=== PATIENT | male | born 1995 | race Caucasian/White ===

== ENCOUNTER 2019-07-19 11:13 | Emergency (ER) | payer SELFPAY ==
--- NOTE | 2019-07-19 12:58 | ER Document Report ---
ED Medical Screen (RME) - General Chief Complaint: Bloody Stools Stated Complaint: BLOOD IN STOOL Time Seen by Provider: 07/19/19 12:52 Notes: Patient presents complaining of blood in the stool today with lower abdominal tenderness. Patient denies any other abnormal bleeding or bruising. Patient also complains of dental pain to right upper jaw. Patient denies any fever. No significant medical history. I have greeted and performed a rapid initial assessment of this patient. A comprehensive ED assessment and evaluation of the patient, analysis of test results and completion of the medical decision making process will be conducted by additional ED providers. TRAVEL OUTSIDE OF THE [place] IN LAST 30 DAYS: No - Related Data Allergies/Adverse Reactions: No Known Allergies Allergy (Verified 07/19/19 12:46) Past Medical History - Social History Chew tobacco use (# tins/day): No Frequency of alcohol use: None Drug Abuse: None Physical Exam - Vital signs Vitals: Temp Pulse Resp BP Pulse Ox 97.5 F 68 16 125/80 100 07/19/19 12:55 07/19/19 12:55 07/19/19 12:55 07/19/19 12:55 07/19/19 12:55 - General General appearance: Appears well, Alert Notes: Right upper jaw dental decay and tenderness, lower pelvic tenderness Course - Vital Signs Vital signs: Temp Pulse Resp BP Pulse Ox 97.5 F 68 16 125/80 100 07/19/19 12:55 07/19/19 12:55 07/19/19 12:55 07/19/19 12:55 07/19/19 12:55
[2019-07-19 13:33] LABS: ABSOLUTE EOSINOPHILS # (AUTO) 0.1 10^3/uL (0.0-0.6); ABSOLUTE LYMPHOCYTES (AUTO) 1.9 10^3/uL (0.5-4.7); ABSOLUTE MONOCYTES (AUTO) 0.4 10^3/uL (0.1-1.4); ABSOLUTE NEUT (AUTO) 2.4 10^3/uL (1.7-8.2); BASOPHILS % (AUTO) 0.7 % (0-2); EOSINOPHILS % (AUTO) 1.8 % (0-6); HEMATOCRIT 41.7 % (37.9-51.0); HEMOGLOBIN 13.8 g/dL (13.5-17.0); LYMPHOCYTES % (AUTO) 39.2 % (13-45); MEAN CORPUSCULAR HEMOGLOBIN 26.6 pg (27.0-33.4); MEAN CORPUSCULAR HGB CONC 33.1 g/dL (32.0-36.0); MEAN CORPUSCULAR VOLUME 80 fl (80-97); MONOCYTES % (AUTO) 8.9 % (3-13); PLATELET COUNT 249 10^3/uL (150-450); RED BLOOD COUNT 5.19 10^6/uL (4.35-5.55); RED CELL DISTRIBUTION WIDTH 15.4 % (11.5-14.0); SEGMENTED NEUTROPHILS % (AUTO) 49.4 % (42-78); TOTAL CELLS COUNTED % (AUTO) 100 %; WHITE BLOOD COUNT 4.9 10^3/uL (4.0-10.5)
[2019-07-19 13:44] LABS: APPEARANCE,URINE CLEAR; BILIRUBIN,URINE NEGATIVE (NEGATIVE); COLOR,URINE COLORLESS; GLUCOSE, URINE NEGATIVE (NEGATIVE); KETONES,URINE NEGATIVE (NEGATIVE); LEUKOCYTE ESTERASE,URINE NEGATIVE (NEGATIVE); NITRITE,URINE NEGATIVE (NEGATIVE); PROTEIN,URINE NEGATIVE (NEGATIVE); URINE SPECIFIC GRAVITY 1.001; UROBILINOGEN,URINE NEGATIVE mg/dL (<2.0)
[2019-07-19 13:59] LABS: ALBUMIN 4.1 g/dL (3.5-5.0); ALKALINE PHOSPHATASE 60 U/L (38-126); ANION GAP 6 (5-19); ASPARTATE AMINO TRANSFERASE 27 U/L (17-59); BILIRUBIN,TOTAL 1.7 mg/dL (0.2-1.3); BLOOD UREA NITROGEN 9 mg/dL (7-20); CALCIUM 9.6 mg/dL (8.4-10.2); CARBON DIOXIDE 30 mmol/L (22-30); CHLORIDE 102 mmol/L (98-107); GLUCOSE 100 mg/dL (75-110); POTASSIUM 4.6 mmol/L (3.6-5.0)
[2019-07-19] MEDS ORDERED: HYDROCODONE/ACETAMINOPHEN 5-325 MG TABLET PO ONE (15:36)
[2019-07-19] MEDS ORDERED: PENICILLIN V POTASSIUM 500 MG TABLET PO ONE (15:36)
--- NOTE | 2019-07-19 15:40 | ER Document Report ---
ED General - General Chief Complaint: Bloody Stools Stated Complaint: BLOOD IN STOOL Time Seen by Provider: 07/19/19 12:52 Primary Care Provider: [facility] [Provider Group] - Follow up as needed [facility] [Provider Group] - Follow up as needed GEETHA CASTRO MD [ACTIVE STAFF] - Follow up as needed MICHAEL JIMENEZ MD [ACTIVE STAFF] - Follow up as needed Mode of Arrival: Ambulatory Information source: Patient Notes: Patient presents complaining of blood in the stool today. Patient does report lower abdominal tenderness as well. Patient additionally has been complaining of dental pain. Patient denies any fever. Patient denies any other abnormal bleeding or bruising. TRAVEL OUTSIDE OF THE [place] IN LAST 30 DAYS: No - HPI Onset: This afternoon Onset/Duration: Sudden Quality of pain: Achy Pain Level: 2 Associated symptoms: Other - Blood in the stool. denies: Chest pain, Nonproductive cough, Productive cough, Fever, Headache, Nausea, Vomiting, Weakness Exacerbated by: Denies Relieved by: Denies Similar symptoms previously: No Recently seen / treated by doctor: No - Related Data Allergies/Adverse Reactions: No Known Allergies Allergy (Verified 07/19/19 12:46) Past Medical History - General Information source: Patient - Social History Smoking Status: Never Smoker Chew tobacco use (# tins/day): No Frequency of alcohol use: None Drug Abuse: None Occupation: None Lives with: Family Family History: Reviewed & Not Pertinent Patient has suicidal ideation: No Patient has homicidal ideation: No Pulmonary Medical History: Reports: Hx Pneumonia - january Past Surgical History: Reports: Hx Cardiac Surgery - Cardiac valve repair Review of Systems - Review of Systems Constitutional: No symptoms reported. denies: Fever EENT: Dental problem Cardiovascular: No symptoms reported. denies: Chest pain, Palpitations, Dizziness, Lightheaded Respiratory: No symptoms reported. denies: Cough, Short of breath Gastrointestinal: Abdominal pain, Blood streaked bowels. denies: Diarrhea, Nausea, Vomiting Genitourinary: No symptoms reported. denies: Dysuria, Flank pain Male Genitourinary: No symptoms reported Musculoskeletal: No symptoms reported. denies: Back pain Skin: No symptoms reported Hematologic/Lymphatic: No symptoms reported Neurological/Psychological: No symptoms reported Physical Exam - Vital signs Vitals: Temp Pulse Resp BP Pulse Ox 97.5 F 68 16 125/80 100 07/19/19 12:55 07/19/19 12:55 07/19/19 12:55 07/19/19 12:55 07/19/19 12:55 - General General appearance: Appears well, Alert In distress: None - HEENT Head: Normocephalic, Atraumatic Eyes: Normal Conjunctiva: Normal Ears: Normal External canal: Normal Nasal: Normal Mouth/Lips: Caries, Dental fracture Teeth diagram: 1 - Tenderness, dental decay, no gingival abscess, no trismus Pharynx: Normal Neck: Normal, Supple. No: Lymphadenopathy - Respiratory Respiratory status: No respiratory distress Chest status: Nontender Breath sounds: Normal. No: Rales, Rhonchi, Stridor, Wheezing Chest palpation: Normal - Cardiovascular Rhythm: Regular Heart sounds: S1 appreciated, S2 appreciated Murmur: No - Abdominal Inspection: Normal Distension: No distension Bowel sounds: Normal Tenderness: Nontender - Rectal Tenderness: No Stool: See lab result Hemorrhoids: External Notes: RN Efra as standby - Back Back: Normal, Nontender. No: CVA tenderness - Extremities General upper extremity: Normal inspection, Normal strength General lower extremity: Normal inspection, Normal strength - Neurological Neuro grossly intact: Yes Cognition: Normal Orientation: AAOx4 Poli Coma Scale Eye Opening: Spontaneous [place] Coma Scale Verbal: Oriented [place] Coma Scale Motor: Obeys Commands [place] Coma Scale Total: 15 - Psychological Associated symptoms: Normal affect, Normal mood - Skin Skin Temperature: Warm Skin Moisture: Dry Skin Color: Normal Course - Re-evaluation Re-evalutation: 07/19/19 15:37 Patient with small external hemorrhoid noted on rectal examination. Patient's abdomen soft, no guarding. Patient primarily complains of dental pain with incidental blood with a bowel movement today. Patient with stable vital signs and no anemia at this time. Patient encouraged to follow-up with her primary doctor for recheck. Patient advised to return immediately for any persistent bleeding, lightheadedness dizziness or any other abnormal bleeding or bruising. Patient advised that he may need to see a intermodal dispatcher for a colonoscopy if he has any persistent problems. - Vital Signs Vital signs: Temp Pulse Resp BP Pulse Ox 97.5 F 71 16 115/79 100 07/19/19 15:50 07/19/19 15:50 07/19/19 15:50 07/19/19 15:50 07/19/19 15:50 - Laboratory Result Diagrams: 07/19/19 13:20 07/19/19 13:20 Laboratory results interpreted by me: 07/19/19 07/19/19 13:20 13:20 MCH 26.6 L RDW 15.4 H Total Bilirubin 1.7 H 07/19/19 15:39 Labs- Entire Visit 07/19/19 07/19/19 07/19/19 13:20 13:20 13:20 WBC 4.9 RBC 5.19 Hgb 13.8 Hct 41.7 MCV 80 MCH 26.6 L MCHC 33.1 RDW 15.4 H Plt Count 249 Lymph % (Auto) 39.2 [place] % (Auto) 8.9 Eos % (Auto) 1.8 Baso % (Auto) 0.7 Absolute Neuts (auto) 2.4 Absolute Lymphs (auto) 1.9 Absolute Monos (auto) 0.4 Absolute Eos (auto) 0.1 Absolute Basos (auto) 0.0 Seg Neutrophils % 49.4 Sodium 138.2 Potassium 4.6 Chloride 102 Carbon Dioxide 30 Anion Gap 6 BUN 9 Creatinine 0.89 Est GFR ( Amer) > 60 Est GFR (MDRD) Non-Af > 60 Glucose 100 Calcium 9.6 Total Bilirubin 1.7 H Direct Bilirubin 0.0 Neonat Total Bilirubin Not Reportable Neonat Direct Bilirubin Not Reportable Neonat Indirect Bili Not Reportable AST 27 ALT 16 Alkaline Phosphatase 60 Total Protein 8.0 Albumin 4.1 Urine Color COLORLESS Urine Appearance CLEAR Urine pH 7.0 Ur Specific [place] 1.001 Urine Protein NEGATIVE Urine Glucose (UA) NEGATIVE Urine Ketones NEGATIVE Urine Blood NEGATIVE Urine Nitrite NEGATIVE Urine Bilirubin NEGATIVE Urine Urobilinogen NEGATIVE Ur Leukocyte Esterase NEGATIVE Urine WBC (Auto) 0 Urine Mucus (Auto) RARE Urine Ascorbic Acid NEGATIVE POC Stool Occult Blood 07/19/19 14:28 WBC RBC Hgb Hct MCV MCH MCHC RDW Plt Count Lymph % (Auto) [place] % (Auto) Eos % (Auto) Baso % (Auto) Absolute Neuts (auto) Absolute Lymphs (auto) Absolute Monos (auto) Absolute Eos (auto) Absolute Basos (auto) Seg Neutrophils % Sodium Potassium Chloride Carbon Dioxide Anion Gap BUN Creatinine Est GFR ( Amer) Est GFR (MDRD) Non-Af Glucose Calcium Total Bilirubin Direct Bilirubin Neonat Total Bilirubin Neonat Direct Bilirubin Neonat Indirect Bili AST ALT Alkaline Phosphatase Total Protein Albumin Urine Color Urine Appearance Urine pH Ur Specific [place] Urine Protein Urine Glucose (UA) Urine Ketones Urine Blood Urine Nitrite Urine Bilirubin Urine Urobilinogen Ur Leukocyte Esterase Urine WBC (Auto) Urine Mucus (Auto) Urine Ascorbic Acid POC Stool Occult Blood POSITIVE Discharge - Discharge Clinical Impression: Toothache, Blood in stool Hemorrhoid Qualifiers: Hemorrhoid type: unspecified Qualified Code(s): K64.9 - Unspecified hemorrhoids Condition: Stable Disposition: HOME, SELF-CARE Instructions: Hemorrhoids ([facility]), Penicillin V K ([facility]), Positive Test for Blood in Stool ([facility]), Toothache ([facility]) Additional Instructions: Return immediately for any new or worsening symptoms: Persistent rectal bleeding, fever, abdominal pain, abnormal bleeding or bruising, lightheadedness, dizziness or any worsening concerning symptoms Followup with your primary care provider, call tomorrow to make a followup appointment You may need to follow-up with a intermodal dispatcher if you have any persistent problems with blood in the stool. Follow-up with a dental care provider Stay well-hydrated and avoid constipation. You may use [id number] Tucks pads to wipe after bowel movements Prescriptions: Penicillin V Potassium [Penicillin Vk 500 mg Tablet] 500 mg PO BID #20 tablet Tramadol HCl [Ultram 50 mg Tablet] 50 mg PO ASDIR PRN #10 tablet PRN Reason: Referrals: [facility] [Provider Group] - Follow up as needed [facility] [Provider Group] - Follow up as needed GEETHA CASTRO MD [ACTIVE STAFF] - Follow up as needed MICHAEL JIMENEZ MD [ACTIVE STAFF] - Follow up as needed
[2019-07-19 15:51] VITALS: BP 115/79
== END 2019-07-19 15:55 | disposition home or self-care (01) ==
LOC: ER 11:13
DX: K64.9 Unspecified hemorrhoids (principal); K08.89 Other specified disorders of teeth and supporting structures; R19.5 Other fecal abnormalities; R10.30 Lower abdominal pain, unspecified
CPT/HCPCS: 36415; 80053; 81001; 85025; 99283

== ENCOUNTER 2019-07-24 11:16 | Emergency (ER) | payer SELFPAY ==
[2019-07-24] MEDS ORDERED: IBUPROFEN 800 MG TABLET PO ONE (11:27)
--- NOTE | 2019-07-24 11:30 | ER Document Report ---
ED Medical Screen (RME) - General Chief Complaint: Flu Symptoms Stated Complaint: FLU LIKE SYMPTOMS Time Seen by Provider: 07/24/19 11:22 Mode of Arrival: Wheelchair Information source: Patient, Friend Notes: 23-year-old male presents emergency department with complaints of bilateral knee pain low back pain for the past 2 days. Reports he took Aleve without relief of symptoms. Denies fever vomiting diarrhea. Patient does have a history of a pacemaker recently replaced last year. 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 Denies chest pain denies abdominal pain. He did not receive his flu vaccine. Denies trauma. Reports he was evaluated in this emergency department on Monday for blood in his stool with diagnosis of hemorrhoids. Patient's girlfriend reports he felt warm last night. Did not take any Tylenol or Aleve this morning. No fever this morning. Patient looks very uncomfortable moaning and rocking back and forth. I have greeted and performed a rapid initial assessment of this patient. A comprehensive ED assessment and evaluation of the patient, analysis of test results and completion of the medical decision making process will be conducted by additional ED providers. TRAVEL OUTSIDE OF THE [place] IN LAST 30 DAYS: No - Related Data Allergies/Adverse Reactions: No Known Allergies Allergy (Verified 07/24/19 11:22) Past Medical History Pulmonary Medical History: Reports: Hx Pneumonia - january Past Surgical History: Reports: Hx Bowel Surgery, Hx Cardiac Surgery - Cardiac valve repair Physical Exam - Vital signs Vitals: Temp Pulse Resp BP Pulse Ox 98.7 F 66 22 H 101/64 97 07/24/19 11:20 07/24/19 11:20 07/24/19 11:20 07/24/19 11:20 07/24/19 11:20 Course - Vital Signs Vital signs: Temp Pulse Resp BP Pulse Ox 98.7 F 66 22 H 101/64 97 07/24/19 11:20 07/24/19 11:20 07/24/19 11:20 07/24/19 11:20 07/24/19 11:20
--- NOTE | 2019-07-24 12:04 | ER Document Report ---
ED General - General Chief Complaint: Pain All Over Stated Complaint: FLU LIKE SYMPTOMS Time Seen by Provider: 07/24/19 11:22 Mode of Arrival: Wheelchair Notes: HPI: Patient is a 23-year-old male who presents today with the onset last evening and this morning of backaches, leg aches, feeling "warm" with a mild sore throat. He also states a mild frontal headache. No blurry vision, head trauma, vomiting, diarrhea, cough, congestion, belly pain, or dysuria. Past medical history as recorded including a pacemaker for bradycardia as well as a tricuspid valve repair/replacement in January in [place]. Patient moved h ere recently. Patient did not have an influenza shot this year. Patient did not take any Motrin, Tylenol, or other antipyretics throughout the evening with this morning prior to arrival. ROS: See HPI All other review of systems reviewed and otherwise negative Reviewed vital signs and nursing note as charted by RN. PHYSICAL EXAM: CONSTITUTIONAL: Alert and oriented and responds appropriately to questions. Patient laughing and playful in no acute distress HEAD: Normocephalic; atraumatic EYES: PERRL; Conjunctivae clear, sclerae non-icteric ENT: Normal nose; no rhinorrhea; moist mucous membranes; pharynx minimally erythematous with no peritonsillar swelling with a nonswollen midline uvula NECK: Supple without meningismus; non-tender; full range of motion of the neck; no cervical lymphadenopathy, no masses CARD: Regular rate and rhythm; no murmurs; symmetric distal pulses RESP: Normal chest excursion without splinting or tachypnea; breath sounds clear and equal bilaterally; no wheezes, no rhonchi, no rales ABD/GI: Normal bowel sounds; non-distended; soft, non-tender; no palpable organomegaly or masses BACK: The back appears normal and is non-tender to palpation EXT: Normal ROM in all joints; non-tender to palpation; no edema SKIN: No acute lesions noted NEURO: CN 2-12 intact; 5/5 bilateral upper and lower extremity strength with sensation intact to light touch PSYCH: The patient's mood and manner are appropriate. Grooming and personal hygiene are appropriate. TRAVEL OUTSIDE OF THE [place] IN LAST 30 DAYS: No - Related Data Allergies/Adverse Reactions: No Known Allergies Allergy (Verified 07/24/19 11:22) Home Medications: no home medications Past Medical History - General Information source: Patient, Friend - Social History Smoking Status: Never Smoker Chew tobacco use (# tins/day): No Frequency of alcohol use: None Drug Abuse: None Family History: Reviewed & Not Pertinent Patient has suicidal ideation: No Patient has homicidal ideation: No Pulmonary Medical History: Reports: Hx Pneumonia - january Past Surgical History: Reports: Hx Bowel Surgery, Hx Cardiac Surgery - Cardiac valve repair Physical Exam - Vital signs Vitals: Temp Pulse Resp BP Pulse Ox 98.7 F 66 22 H 101/64 97 07/24/19 11:20 07/24/19 11:20 07/24/19 11:20 07/24/19 11:20 07/24/19 11:20 Course - Re-evaluation Re-evalutation: 07/24/19 12:03 Given the above history and physical, temperature as recorded, no antipyretics prior to arrival, looking extremely well sitting up smiling in no acute distress, with an erythematous throat with signs and symptoms consistent with influenza we will order a rapid strep and influenza a/B. I have an extremely low pretest probability for bacterial meningitis. Patient is not immunocompr omise. Patient has no cough, congestion, with breath sounds bilaterally equal without rhonchi or rales. Oxygen saturation is recorded. 07/24/19 12:39 Influenza and strep as recorded. No change in exam. The sensitivity of the test that we use here for influenza is only 50%. Patient symptomatology with the back and leg aches does appear to be very influenza-like. Given the patient's prior history I will treat with Tamiflu. To be conservative, we will send blood cultures as well as perform an x-ray of the chest. If these are unremarkable and the patient continues to look excellent I will provide a 5-day course of Tamiflu. 07/24/19 14:14 X-ray as recorded. White blood cell count is recorded. Patient still has no focal neurological deficits, still soft supple neck. I will treat the patient with a course of Tamiflu with blood cultures pending. Strict return precautions have been explained. - Vital Signs Vital signs: Temp Pulse Resp BP Pulse Ox 98.7 F 66 22 H 101/64 97 07/24/19 11:20 07/24/19 11:20 07/24/19 11:20 07/24/19 11:20 07/24/19 11:20 - Laboratory Result Diagrams: 07/24/19 13:05 07/24/19 13:05 Laboratory results interpreted by me: 07/24/19 07/24/19 13:05 13:05 MCH 26.5 L RDW 15.7 H Lymph % (Auto) 7.2 L [place] % (Auto) 14.8 H Glucose 112 H Discharge - Discharge Clinical Impression: Generalized body aches Condition: Good Disposition: HOME, SELF-CARE Additional Instructions: Come back immediately with any rash, confusion, change in mental status, persis tent vomiting or diarrhea, shortness of breath, neck stiffness, or any other acute problems. Please make sure that you take the Tamiflu and follow-up with your primary care physician as discussed. Prescriptions: Oseltamivir Phosphate [Tamiflu 75 mg Capsule] 75 mg PO BID 5 Days #10 capsule
[2019-07-24 12:25] LABS: A TYPE INFLUENZA AG NEGATIVE (NEGATIVE); B INFLUENZA AG NEGATIVE (NEGATIVE)
[2019-07-24] MEDS ORDERED: OSELTAMIVIR PHOSPHATE 75 MG CAPSULE PO ONE (12:39)
--- NOTE | 2019-07-24 13:15 | RADIOLOGY REPORT (SQ) ---
EXAM DESCRIPTION: CHEST 2 VIEWS COMPLETED DATE/TIME: 07/24/2019 12:54 pm REASON FOR STUDY: 34; fever COMPARISON: None. EXAM PARAMETERS: NUMBER OF VIEWS: two views TECHNIQUE: PA and lateral views of the chest were obtained. RADIATION DOSE: NA LIMITATIONS: none FINDINGS: LUNGS AND PLEURA: No consolidation, pleural effusion or pneumothorax. MEDIASTINUM AND HILAR STRUCTURES: No mediastinal or hilar contour abnormality. HEART AND VASCULAR STRUCTURES: Dextrocardia with situs inversus. BONES: No acute findings. HARDWARE: The median sternotomy wires, cardiac valve prosthesis, and implanted cardiac device. OTHER: No other finding. IMPRESSION: Dextrocardia with situs inversus. No acute cardiopulmonary process. TECHNICAL DOCUMENTATION: JOB ID: [id number] [employer]- All Rights Reserved Reading location - IP/workstation name: [email or web address]
[2019-07-24 13:35] LABS: ABSOLUTE LYMPHOCYTES (AUTO) 0.5 10^3/uL (0.5-4.7); ABSOLUTE MONOCYTES (AUTO) 0.9 10^3/uL (0.1-1.4); ABSOLUTE NEUT (AUTO) 4.9 10^3/uL (1.7-8.2); BASOPHILS % (AUTO) 0.4 % (0-2); EOSINOPHILS % (AUTO) 0.6 % (0-6); HEMATOCRIT 42.1 % (37.9-51.0); HEMOGLOBIN 13.9 g/dL (13.5-17.0); LYMPHOCYTES % (AUTO) 7.2 % (13-45); MEAN CORPUSCULAR HEMOGLOBIN 26.5 pg (27.0-33.4); MEAN CORPUSCULAR HGB CONC 32.9 g/dL (32.0-36.0); MEAN CORPUSCULAR VOLUME 81 fl (80-97); MONOCYTES % (AUTO) 14.8 % (3-13); PLATELET COUNT 191 10^3/uL (150-450); RED BLOOD COUNT 5.23 10^6/uL (4.35-5.55); RED CELL DISTRIBUTION WIDTH 15.7 % (11.5-14.0); TOTAL CELLS COUNTED % (AUTO) 100 %; WHITE BLOOD COUNT 6.4 10^3/uL (4.0-10.5)
[2019-07-24 14:04] LABS: ANION GAP 10 (5-19); BLOOD UREA NITROGEN 10 mg/dL (7-20); CALCIUM 9.6 mg/dL (8.4-10.2); CARBON DIOXIDE 28 mmol/L (22-30); CHLORIDE 101 mmol/L (98-107); GLUCOSE 112 mg/dL (75-110); POTASSIUM 3.9 mmol/L (3.6-5.0)
[2019-07-24 16:26] VITALS: BP 102/61
== END 2019-07-24 16:26 | disposition home or self-care (01) ==
LOC: ER 11:16
DX: M79.10 Myalgia, unspecified site (principal); M54.9 Dorsalgia, unspecified; M79.604 Pain in right leg; M79.605 Pain in left leg; J02.9 Acute pharyngitis, unspecified; R51 Headache; Z95.0 Presence of cardiac pacemaker
CPT/HCPCS: 99283; 36415; 87040; 87070; 87880; 85025; 87077; 80048; 87804; 71046; J3490

== ENCOUNTER 2019-12-09 10:51 | Emergency (ER) | payer SELFPAY ==
--- NOTE | 2019-12-09 11:50 | ER Document Report ---
ED Medical Screen (RME) - General Chief Complaint: Head Injury Stated Complaint: HEAD INJURY Time Seen by Provider: 12/09/19 11:48 Mode of Arrival: Ambulatory Information source: Patient Notes: 24-year-old male presents to ED for injury to the top of his head. He does have tenderness to the top of his head he hit it on a cabinet. He states there was a small amount of bleeding but not at this time. He also had a has a history of situs inversus and dextrocardia. All of his organs are on the wrong side. He also has a pacemaker he had multiple heart surgeries pneumonia he also has blood clots in the lung. He states he took stop taking his blood thinners on his own because he was on Eliquis and he was did not like the way it was making him feel. He is alert oriented respirations regular and unlabored speaking in full sentences. He states he does not smoke drink or use any drugs. I have greeted and performed a rapid initial assessment of this patient. A comprehensive ED assessment and evaluation of the patient, analysis of test results and completion of medical decision making process will be conducted by an additional ED providers. TRAVEL OUTSIDE OF THE [place] IN LAST 30 DAYS: No - Related Data Allergies/Adverse Reactions: No Known Allergies Allergy (Verified 07/24/19 11:22) Past Medical History - Social History Frequency of alcohol use: None Drug Abuse: None Pulmonary Medical History: Reports: Hx Pneumonia - january Past Surgical History: Reports: Hx Bowel Surgery, Hx Cardiac Surgery - Cardiac valve repair Physical Exam - Vital signs Vitals: Temp Pulse Resp BP Pulse Ox 97.9 F 70 16 120/81 99 12/09/19 11:12/09/19 11:12/09/19 11:12/09/19 11:00 12/09/19 11:00 Course - Vital Signs Vital signs: Temp Pulse Resp BP Pulse Ox 97.9 F 70 16 120/81 99 12/09/19 11:41 12/09/19 11:00 12/09/19 11:00 12/09/19 11:00 12/09/19 11:00
[2019-12-09 12:27] LABS: ABSOLUTE EOSINOPHILS # (AUTO) 0.2 10^3/uL (0.0-0.6); ABSOLUTE LYMPHOCYTES (AUTO) 1.6 10^3/uL (0.5-4.7); ABSOLUTE MONOCYTES (AUTO) 0.3 10^3/uL (0.1-1.4); ABSOLUTE NEUT (AUTO) 1.9 10^3/uL (1.7-8.2); BASOPHILS % (AUTO) 0.8 % (0-2); EOSINOPHILS % (AUTO) 3.8 % (0-6); HEMATOCRIT 44.8 % (37.9-51.0); HEMOGLOBIN 14.9 g/dL (13.5-17.0); LYMPHOCYTES % (AUTO) 39.8 % (13-45); MEAN CORPUSCULAR HEMOGLOBIN 27.5 pg (27.0-33.4); MEAN CORPUSCULAR HGB CONC 33.4 g/dL (32.0-36.0); MEAN CORPUSCULAR VOLUME 82 fl (80-97); MONOCYTES % (AUTO) 8.6 % (3-13); PLATELET COUNT 195 10^3/uL (150-450); RED BLOOD COUNT 5.44 10^6/uL (4.35-5.55); RED CELL DISTRIBUTION WIDTH 14.2 % (11.5-14.0); TOTAL CELLS COUNTED % (AUTO) 100 %; WHITE BLOOD COUNT 4.1 10^3/uL (4.0-10.5)
[2019-12-09 12:37] LABS: PROTHROMBIN TIME 14.3 SEC (11.4-15.4)
[2019-12-09 12:44] LABS: ALBUMIN 4.5 g/dL (3.5-5.0); ALKALINE PHOSPHATASE 55 U/L (38-126); ANION GAP 5 (5-19); ASPARTATE AMINO TRANSFERASE 32 U/L (17-59); BILIRUBIN,DIRECT 0.1 mg/dL (0.0-0.4); BILIRUBIN,TOTAL 2.5 mg/dL (0.2-1.3); BLOOD UREA NITROGEN 10 mg/dL (7-20); CALCIUM 9.6 mg/dL (8.4-10.2); CARBON DIOXIDE 29 mmol/L (22-30); CHLORIDE 104 mmol/L (98-107); GLUCOSE 83 mg/dL (75-110); PARTIAL THROMBOPLASTIN TIME 24.7 SEC (23.5-35.8); POTASSIUM 4.4 mmol/L (3.6-5.0); TOTAL PROTEIN 8.3 g/dL (6.3-8.2)
--- NOTE | 2019-12-09 13:55 | ER Document Report ---
HPI - HPI Patient complains to provider of: scalp injury Time Seen by Provider: 12/09/19 11:48 Onset: Other Pain Level: 1 Context: 24-year-old male with cardiac history presents to the emergency department with reports that his girlfriend and him were making breakfast. She opened a cabinet and the salt Shaker fell out. He went to pick it up and when he stood up he hit his head on a cabinet. No change in LOC. Patient reports he felt dizzy at that time. Denies nausea vomiting diarrhea. Patient reports he feels much better now. No active bleeding reports his tetanus is up-to-date. Patient was supposed to go to work today at [employer]. Associated Symptoms: None Exacerbated by: Denies Relieved by: Denies Similar symptoms previously: No Recently seen / treated by doctor: No - CONSTITUTIONAL Constitutional: DENIES: Fever, Chills - NEURO Neurology: REPORTS: Headache - REPRODUCTIVE Reproductive: DENIES: : Past Medical History - General Information source: Patient - Social History Smoking Status: Never Smoker Frequency of alcohol use: None Drug Abuse: None Occupation: [employer] Lives with: Friend Family History: Reviewed & Not Pertinent Patient has suicidal ideation: No Patient has homicidal ideation: No Pulmonary Medical History: Reports: Hx Pneumonia - january Past Surgical History: Reports: Hx Bowel Surgery, Hx Cardiac Surgery - Cardiac valve repair Vertical Provider Document - CONSTITUTIONAL Agree With Documented VS: Yes Exam Limitations: No Limitations General Appearance: WD/WN, No Apparent Distress - INFECTION CONTROL TRAVEL OUTSIDE OF THE [place] IN LAST 30 DAYS: No - HEENT HEENT: Normocephalic. negative: Atraumatic - very small laceration ~2mm superficial to top of his head, Conjuctival Injection, Pharyngeal Erythema, Tympanic Membrane Bulging - NECK Neck: Normal Inspection, Supple - RESPIRATORY Respiratory: No Respiratory Distress - CARDIOVASCULAR Cardiovascular: Regular Rate - MUSCULOSKELETAL/EXTREMETIES Musculoskeletal/Extremeties: KIERA MUNGUIA - NEURO Level of Consciousness: Awake, Alert, Appropriate Motor/Sensory: No Motor Deficit - DERM Integumentary: Warm, Dry, Laceration - very small laceration ~2mm superficial to top of his head Adult Front & Back Diagram: 1 - very small laceration ~2mm superficial to top of his head Course - Re-evaluation Re-evalutation: 12/09/19 Labs unremarkable. Patient has small very superficial laceration to the top of his head no active bleeding. He was instructed on monitoring the site. Return for concerns. He verbalized understand all instructions. Laboratory 12/09/19 12/09/19 12/09/19 11:55 11:55 11:55 WBC 4.1 RBC 5.44 Hgb 14.9 Hct 44.8 MCV 82 MCH 27.5 MCHC 33.4 RDW 14.2 H Plt Count 195 Lymph % (Auto) 39.8 [place] % (Auto) 8.6 Eos % (Auto) 3.8 Baso % (Auto) 0.8 Absolute Neuts (auto) 1.9 Absolute Lymphs (auto) 1.6 Absolute Monos (auto) 0.3 Absolute Eos (auto) 0.2 Absolute Basos (auto) 0.0 Seg Neutrophils % 47.0 PT 14.3 INR 1.10 APTT 24.7 Sodium 138.1 Potassium 4.4 Chloride 104 Carbon Dioxide 29 Anion Gap 5 BUN 10 Creatinine 0.81 Est GFR ( Amer) > 60 Est GFR (MDRD) Non-Af > 60 Glucose 83 Calcium 9.6 Total Bilirubin 2.5 H Direct Bilirubin 0.1 Neonat Total Bilirubin Not Reportable Neonat Direct Bilirubin Not Reportable Neonat Indirect Bili Not Reportable AST 32 ALT 21 Alkaline Phosphatase 55 Total Protein 8.3 H Albumin 4.5 - Vital Signs Vital signs: Temp Pulse Resp BP Pulse Ox 98.0 F 76 17 122/82 99 12/09/19 12:25 12/09/19 12:25 12/09/19 12:25 12/09/19 12:25 12/09/19 12:25 - Laboratory Result Diagrams: 12/09/19 11:55 12/09/19 11:55 Laboratory results interpreted by me: 12/09/19 12/09/19 11:55 11:55 RDW 14.2 H Total Bilirubin 2.5 H Total Protein 8.3 H Discharge - Discharge Clinical Impression: Head injury Qualifiers: Encounter type: initial encounter Qualified Code(s): S09.90XA - Unspecified injury of head, initial encounter Scalp laceration Qualifiers: Encounter type: initial encounter Qualified Code(s): S01.01XA - Laceration without foreign body of scalp, initial encounter Condition: Stable Disposition: HOME, SELF-CARE Additional Instructions: *You have been treated for head injury, scalp laceration *Was treated with gentle shampoo. Monitor the site for any signs of infection such as redness swelling warmth pain Take Tylenol or Motrin as indicated for pain *Follow up with a primary care provider within 1 week for recheck *Return to the emergency department for any signs of infection, concerns, needs Forms: Return to Work
[2019-12-09 13:59] VITALS: BP 121/70
== END 2019-12-09 14:05 | disposition home or self-care (01) ==
LOC: ER 10:51
DX: S01.01XA Laceration without foreign body of scalp, initial encounter (principal); R51 Headache; W22.8XXA Striking against or struck by other objects, initial encounter; Y93.G3 Activity, cooking and baking; I26.99 Other pulmonary embolism without acute cor pulmonale; T45.516A Underdosing of anticoagulants, initial encounter; Z91.128 Patient's intentional underdosing of medication regimen for other reason; Z91.14 Patient's other noncompliance with medication regimen
CPT/HCPCS: 36415; 80053; 85025; 85610; 85730; 99283

== ENCOUNTER 2019-12-31 14:43 | Emergency (ER) | payer SELFPAY ==
--- NOTE | 2019-12-31 16:15 | ER Document Report ---
ED Medical Screen (RME) - General Chief Complaint: Abdominal Pain Stated Complaint: ABDOMINAL PAIN/ HEART PALPITATIONS Time Seen by Provider: 12/31/19 16:00 Notes: HPI: 24-year-old male with history of dextrocardia, situs inversus, bradycardia with pacemaker, PE 1 year ago presenting for mid abdominal pain. Started today. Also had some palpitations with this specifically denies pleuritic pain chest pain shortness of breath. No diarrhea. PHYSICAL EXAMINATION: Moderate tenderness through the mid periumbilical region of the abdomen on palpation I have greeted and performed a rapid initial assessment of this patient. A comprehensive ED assessment and evaluation of the patient, analysis of test results and completion of medical decision making process will be conducted by an additional ED providers. TRAVEL OUTSIDE OF THE U[place]. IN LAST 30 DAYS: No - Related Data Allergies/Adverse Reactions: No Known Allergies Allergy (Verified 07/24/19 11:22) Home Medications: Acyclovir Past Medical History - Social History Frequency of alcohol use: Social Pulmonary Medical History: Reports: Hx Pneumonia - january Past Surgical History: Reports: Hx Bowel Surgery, Hx Cardiac Surgery - Cardiac valve repair Physical Exam - Vital signs Vitals: Temp Pulse Resp BP Pulse Ox 98.8 F 69 16 111/76 98 12/31/19 14:47 12/31/19 14:47 12/31/19 14:47 12/31/19 14:47 12/31/19 14:47 Course - Vital Signs Vital signs: Temp Pulse Resp BP Pulse Ox 98.8 F 69 16 111/76 98 12/31/19 15:59 12/31/19 14:47 12/31/19 14:47 12/31/19 14:47 12/31/19 14:47
[2019-12-31 17:36] LABS: APPEARANCE,URINE SLIGHTLY-CLOUDY; BILIRUBIN,URINE NEGATIVE (NEGATIVE); COLOR,URINE AMBER; GLUCOSE, URINE NEGATIVE (NEGATIVE); KETONES,URINE TRACE mg/dL (NEGATIVE); LEUKOCYTE ESTERASE,URINE NEGATIVE (NEGATIVE); NITRITE,URINE NEGATIVE (NEGATIVE); PROTEIN,URINE 30 mg/dL (NEGATIVE); URINE SPECIFIC GRAVITY 1.028; UROBILINOGEN,URINE NEGATIVE mg/dL (<2.0)
[2019-12-31 19:58] LABS: ABSOLUTE BASOPHILS # (AUTO) 0.1 10^3/uL (0.0-0.2); ABSOLUTE EOSINOPHILS # (AUTO) 0.2 10^3/uL (0.0-0.6); ABSOLUTE LYMPHOCYTES (AUTO) 2.5 10^3/uL (0.5-4.7); ABSOLUTE MONOCYTES (AUTO) 0.5 10^3/uL (0.1-1.4); ABSOLUTE NEUT (AUTO) 3.2 10^3/uL (1.7-8.2); BASOPHILS % (AUTO) 1.3 % (0-2); EOSINOPHILS % (AUTO) 2.7 % (0-6); HEMATOCRIT 39.7 % (37.9-51.0); HEMOGLOBIN 13.1 g/dL (13.5-17.0); LYMPHOCYTES % (AUTO) 38.6 % (13-45); MEAN CORPUSCULAR HEMOGLOBIN 27.1 pg (27.0-33.4); MEAN CORPUSCULAR HGB CONC 32.9 g/dL (32.0-36.0); MEAN CORPUSCULAR VOLUME 82 fl (80-97); MONOCYTES % (AUTO) 8.4 % (3-13); PLATELET COUNT 209 10^3/uL (150-450); RED BLOOD COUNT 4.83 10^6/uL (4.35-5.55); RED CELL DISTRIBUTION WIDTH 13.8 % (11.5-14.0); TOTAL CELLS COUNTED % (AUTO) 100 %; WHITE BLOOD COUNT 6.5 10^3/uL (4.0-10.5)
--- NOTE | 2019-12-31 20:01 | EKG REPORT ---
SEVERITY:- ABNORMAL ECG - ATRIAL-PACED RHYTHM BORDERLINE RIGHT AXIS DEVIATION ABNORMAL T, CONSIDER ISCHEMIA, LATERAL LEADS : Confirmed by: Juan Rosa MD 31-Dec-2019 20:00:06
[2019-12-31 20:11] LABS: ALBUMIN 4.3 g/dL (3.5-5.0); ALKALINE PHOSPHATASE 54 U/L (38-126); ANION GAP 6 (5-19); ASPARTATE AMINO TRANSFERASE 25 U/L (17-59); BILIRUBIN,DIRECT 0.1 mg/dL (0.0-0.4); BILIRUBIN,TOTAL 1.7 mg/dL (0.2-1.3); BLOOD UREA NITROGEN 10 mg/dL (7-20); CALCIUM 9.5 mg/dL (8.4-10.2); CARBON DIOXIDE 29 mmol/L (22-30); CHLORIDE 102 mmol/L (98-107); GLUCOSE 95 mg/dL (75-110); POTASSIUM 4.1 mmol/L (3.6-5.0)
--- NOTE | 2019-12-31 20:21 | ER Document Report ---
ED General - General Chief Complaint: Abdominal Pain Stated Complaint: ABDOMINAL PAIN/ HEART PALPITATIONS Time Seen by Provider: 12/31/19 16:00 Notes: 24-year-old male presents emergency department complaining of mild diffuse abdominal pain that started this afternoon around 2 PM. He describes it as a diffuse, aching constant pain that does not change with anything to drink. He has not tried eating since the pain started because he does not have an appetite. Denies nausea, vomiting or diarrhea. States his biggest concern is that his cardiac pacemaker is actually in his abdomen and after the abdominal pain started he started having palpitations. States that the pacer was moved there approximately 1 year ago when he developed an infection around the pacemaker that had been in his chest. Patient has a history of dextrocardia with situs inversus. TRAVEL OUTSIDE OF THE [place] IN LAST 30 DAYS: No - Related Data Allergies/Adverse Reactions: No Known Allergies Allergy (Verified 07/24/19 11:22) Home Medications: Acyclovir Past Medical History - General Information source: Patient - Social History Smoking Status: Current Some Day Smoker - Occasionally vapes, used to smoke. Frequency of alcohol use: Social Drug Abuse: None Family History: Reviewed & Not Pertinent Patient has homicidal ideation: No Pulmonary Medical History: Reports: Hx Pneumonia - january Past Surgical History: Reports: Hx Bowel Surgery, Hx Cardiac Surgery - Cardiac valve repair Review of Systems - Review of Systems Constitutional: No symptoms reported EENT: No symptoms reported Cardiovascular: See HPI, Palpitations. denies: Chest pain, Dizziness Respiratory: No symptoms reported Gastrointestinal: See HPI, Abdominal pain. denies: Diarrhea, Nausea, Vomiting -: Yes All other systems reviewed and negative Physical Exam - Vital signs Vitals: Temp Pulse Resp BP Pulse Ox 98.8 F 69 16 111/76 98 12/31/19 14:47 12/31/19 14:47 12/31/19 14:47 12/31/19 14:47 12/31/19 14:47 Interpretation: Normal - Notes Notes: GENERAL: Alert, interacts well. No acute distress. HEAD: Normocephalic, atraumatic EYES: Pupils equal, round and reactive to light, extraocular movements intact. ENT: Oral mucosa moist, tongue midline. NECK: Full range of motion, supple, trachea midline. LUNGS: Clear to auscultation bilaterally, no wheezes, rales or rhonchi, no respiratory distress. HEART: Regular rate and rhythm, no murmurs, gallops, rubs. ABDOMEN: Soft, mildly tender to palpation over mid and right upper abdomen, mostly in the area of the new pacemaker site. Nondistended, bowel sounds present in all 4 quadrants. EXTREMITIES: Moves all 4 extremities spontaneously, no edema. No cyanosis. NEUROLOGICAL: Alert and oriented x3, normal speech. PSYCH: Normal mood, normal affect. SKIN: Warm, Dry, normal turgor, no rashes or lesions noted. Course - Re-evaluation Re-evalutation: 12/31/19 20:19 CBC shows mild anemia with hemoglobin 13.1, CMP shows slightly elevated bilirubin otherwise unremarkable, lipase normal, urinalysis unremarkable. CT scan of the abdomen pelvis is pending. Patient will be placed on a monitor, pacemaker will be interrogated. 12/31/19 22:39 Abdomen/Pelvis CT 12/31/19 00:00 IMPRESSION: No acute process in the abdomen or pelvis. Situs inversus is identified with polysplenia. Chest X-Ray 12/31/19 20:13 IMPRESSION: No acute finding. Situs inversus. copyright 2010 [employer]- All Rights Reserved Inflammatory markers are normal, no evidence of infection of new pacemaker site, pacemaker was interrogated and does not show any evidence of malfunction. Patient did have one episode of atrial fibrillation early in the morning on the that lasted for 3 minutes, patient states he thinks he may be would have woken up for that but he is not certain. States that is not what he is feeling today. Given the fact that the patient states he is having palpitations or some abnormal sensation in his chest and he does have a history of pulmonary embolism for which she has been noncompliant with his medications I am very concerned for the possibility of a recurrent PE. Patient will have a VQ scan performed as he is already had IV contrast for the CT scan of the abdomen pelvis which did not show any acute abnormalities. This will have to be ordered and compounded in [place] and delivered from there. Patient is aware that there will be a several hour wait before the necessary reagents are here. Patient is agreeable to the weight and understands my concern for pulmonary embolism. 01/01/20 02:10 VQ scan does not show any evidence of pulmonary embolism. At present I do not have a specific explanation for the patient's abdominal pain although it is quite mild and while in the emergency department he did have a pizza order to his room and has eaten it without any difficulty or worsening of his pain, patient is also had no vomiting. Suspicion for serious intra-abdominal infection is quite low at this time. I also do not know why he is having palpitations we have not captured any dysrhythmias on the monitor or on his pacemaker. Patient will be discharged home and encouraged to follow-up with his cook cashier food prep as an outpatient. Currently patient does not have a local cook cashier food prep, patient is encouraged to call his cook cashier food prep in [place] and also given information regarding local cook cashier food prep in [place]. - Vital Signs Vital signs: Temp Pulse Resp BP Pulse Ox 98.8 F 69 24 H 109/77 98 12/31/19 15:59 12/31/19 14:47 12/31/19 22:01 12/31/19 22:00 12/31/19 22:01 - Laboratory Result Diagrams: 12/31/19 19:42 12/31/19 19:42 Laboratory results interpreted by me: 12/31/19 12/31/19 12/31/19 16:59 19:42 19:42 Hgb 13.1 L Sodium 136.6 L Total Bilirubin 1.7 H Urine Protein 30 H Urine Ketones TRACE H Urine Ascorbic Acid 40 H - EKG Interpretation by Me Additional EKG results interpreted by me: 12/31/19 20:20 EKG shows atrially paced rhythm at a rate of 69, right axis deviation, T wave inversions in 1 and aVL, also the 6, this is likely a left-sided EKG, patient has dextrocardia, should be repeated on the right side per my interpretation. Repeat EKG with the chest leads done in reverse over the right side of the chest shows again a paced rhythm atrially at a rate of 69, no longer any interventricular conduction delay, there is still right axis deviation, the limb leads are reversed according to the computer, there is now normal R wave progression and there are no T wave inversions noted in V2 through V6, persistent T wave inversions are noted in 1 and aVL per my interpretation. 12/31/19 20:32 Discharge - Discharge Clinical Impression: Epigastric abdominal pain of unknown etiology, Palpitations Condition: Stable Disposition: HOME, SELF-CARE Additional Instructions: I do not know what caused your symptoms tonight. We did not see any problems with your pacemaker, we did not see any signs of infection in your chest or abdomen, we did not see any evidence of blood clot to your lungs. It is very important with your medical history that you follow closely with a cook cashier food prep and with a primary care physician. I have included the names of several local cardiologists as well as primary care physicians but I would like you to consider following up with. You are of course welcome to follow-up with any other cook cashier food prep or primary care physician of your choice as well. Please return to the emergency department for worsening abdominal pain, fevers, vomiting, chest pain, lightheadedness or dizziness or any new or concerning symptoms. Forms: Return to Work Referrals: JANE ESCOBEDO MD [ACTIVE STAFF] - Follow up as needed MARIO ULLOA MD [ACTIVE STAFF] - Follow up as needed
--- NOTE | 2019-12-31 20:40 | RADIOLOGY REPORT (SQ) ---
EXAM DESCRIPTION: Contrast-enhanced CT scan of the abdomen and pelvis. CLINICAL HISTORY: 24 years Male; abd pain. Known situs inversus. TECHNIQUE: CT of the abdomen and pelvis with intravenous contrast. Delayed imaging was performed. All CT scans at this facility use dose modulation, iterative reconstruction, and/or weight based dosing when appropriate to reduce radiation dose to as low as reasonably achievable. This exam was performed according to our department optimization program which includes automated exposure control, adjustment of the mA and/or kv according to patient size and/or use of iterative reconstruction technique. COMPARISON: None. FINDINGS: Lower chest: Dextrocardia of the heart is identified and there is transposition of the descending thoracic aorta and the inferior vena cava consistent with situs inversus. The lung bases are clear. No pleural effusion. No pneumothorax. Postsurgical change of sternotomy and prosthetic valve placement and the heart. Abdomen: Liver and biliary tree: The liver is on the left side of the abdomen and there is changes of situs inversus. Portal vein is patent. Gallbladder is unremarkable. Pancreas: Normal Spleen: Polysplenia is noted and multiple splenules are seen in the right upper quadrant of the abdomen. Kidneys: Kidneys are normal in size, shape and position. No stones. No mass or hydronephrosis. Symmetric renal enhancement. Adrenal glands:Within normal limits Vascular structures:Within normal limits Retroperitoneum: No mass or lymphadenopathy Abdominal wall: normal GI:Bowel is of normal caliber. No focal bowel wall thickening. No obstruction. Appendix: The appendix is not clearly seen General: No free air. No free fluid Pelvis: Lymph nodes: No mass or lymphadenopathy Bladder: Unremarkable. Pelvis: No pelvic mass or adenopathy. Bones: No acute bone findings. IMPRESSION: No acute process in the abdomen or pelvis. Situs inversus is identified with polysplenia.
--- NOTE | 2019-12-31 21:02 | RADIOLOGY REPORT (SQ) ---
EXAM DESCRIPTION: XR CHEST 2 VIEWS COMPLETED DATE/TME: 12/31/2019 20:13 CLINICAL HISTORY: 24 years, Male, palpitations, dextrocardia COMPARISON: None. NUMBER OF VIEWS: TECHNIQUE: LIMITATIONS: None. FINDINGS: No evidence of pulmonary infiltrate or pleural effusion. There is situs inversus, with dextrocardia. The heart is normal in size. Pulmonary vascularity appears normal. There is evidence of prior thoracic surgery. IMPRESSION: No acute finding. Situs inversus. copyright 2010 [employer]- All Rights Reserved
--- NOTE | 2020-01-01 01:21 | RADIOLOGY REPORT (SQ) ---
NUCLEAR MEDICINE LUNG PERFUSION IMAGING Clinical indication: Palpitations. Comparison: None. Correlation: None. Technique: Perfusion imaging was obtained as per standard protocol after intravenous administration of DOSE mCi of technetium 99m labeled MAA. Findings: Homogeneous localization of radiotracer is identified on perfusion imaging. No segmental or subsegmental defects are identified to suggest a pulmonary embolus. A nonsegmental bandlike defect identified left lateral chest inferiorly pleural-based.. Impression: No segmental or subsegmental defects are identified to suggest pulmonary embolus.
[2020-01-01 05:24] VITALS: BP 114/78
--- NOTE | 2020-01-01 09:41 | EKG REPORT ---
SEVERITY:- DEFECTIVE ECG - RIGHT AND LEFT ARM LEADS REVERSED, PLEASE REPEAT ECG THIS IS CONSISTENT WITH DEXTROCARDIA, IF LEAD PLACEMENT'S CAN BE VERIFIED. : Confirmed by: Juan Rosa MD 01-Jan-2020 09:40:27
== END 2020-01-01 05:06 | disposition home or self-care (01) ==
LOC: ER 14:43
DX: R10.84 Generalized abdominal pain (principal); R10.811 Right upper quadrant abdominal tenderness; R10.816 Epigastric abdominal tenderness; R00.2 Palpitations; R63.0 Anorexia; Q89.3 Situs inversus; F17.290 Nicotine dependence, other tobacco product, uncomplicated; D64.9 Anemia, unspecified; Z45.018 Encounter for adjustment and management of other part of cardiac pacemaker; Z86.711 Personal history of pulmonary embolism; Z91.14 Patient's other noncompliance with medication regimen; Z79.899 Other long term (current) drug therapy
CPT/HCPCS: 93005; 99284; 36415; 83690; 85025; 85652; 86140; 80053; 81001; 71046; 78580; 74177; 93010; A9540; Q9969

== ENCOUNTER 2020-03-03 21:34 | Emergency (ER) | payer OTHER ==
--- NOTE | 2020-03-03 22:54 | ER Document Report ---
ED Respiratory Problem - General Chief Complaint: Cough Stated Complaint: BODY ACHES,COUGH,HEADACHE Notes: CHIEF COMPLAINT: Cough, congestion for 2 to 3 days HPI: 24-year-old male presenting with cough and slight nasal congestion for 2 to 3 days denies abdominal pain nausea vomiting. Denies diarrhea. Denies sore throat. Denies pleuritic pain or shortness of breath. Patient is concerned about pneumonia although he indicates that he has not had a fever ROS: See HPI - all other systems were reviewed and are otherwise negative Constitutional: no fever Eyes: no drainage, no blurred vision ENT: + runny nose, no sore throat Cardiovascular: no chest pain Resp: no SOB, + cough GI: no vomiting, no diarrhea, no abdominal pain : no dysuria Integumentary: no rash Allergy: no hives Musculoskeletal: no extremity pain or swelling Neurological: no numbness/tingling, no weakness MEDICATIONS: I agree with the patient medications as charted by the RN. ALLERGIES: I agree with the allergies as charted by the RN. PAST MEDICAL HISTORY/PAST SURGICAL HISTORY: Reviewed and agree as charted by RN. SOCIAL HISTORY: Reviewed and agree as charted by RN. FAMILY HISTORY: No significant familial comorbid conditions directly related to patient complaint EXAM: Reviewed vital signs as charted by RN. CONSTITUTIONAL: Alert and oriented and responds appropriately to questions. Well-appearing; well-nourished HEAD: Normocephalic; atraumatic EYES: PERRL; Conjunctivae clear, sclerae non-icteric ENT: normal nose; clear rhinorrhea; moist mucous membranes; pharynx without lesions noted, no uvula edema or deviation, no tonsillar hypertrophy, phonation normal NECK: Supple without meningismus; non-tender; no cervical lymphadenopathy, no masses CARD: RRR; no murmurs, no clicks, no rubs, no gallops; symmetric distal pulses RESP: Normal chest excursion without splinting or tachypnea; breath sounds clear and equal bilaterally; no wheezes, no rhonchi, no rales, pulse oximetry 100% on room air not hypoxic ABD/GI: Normal bowel sounds; non-distended; soft, non-tender, no rebound, no guarding; no palpable organomegaly or masses. BACK: The back appears normal and is non-tender to palpation, there is no CVA tenderness EXT: Normal ROM in all joints; non-tender to palpation; no cyanosis, no effusions, no edema SKIN: Normal color for age and race; warm; dry; good turgor; no acute lesions noted NEURO: Moves all extremities equally; Motor and sensory function intact PSYCH: The patient's mood and manner are appropriate. Grooming and personal hygiene are appropriate. MDM: 24-year-old male with mild upper respiratory symptoms states girlfriend who gave recently was tested negative for COVID a week ago. His symptoms began 2 to 3 days ago. No distress afebrile not hypoxic, no pleuritic pain or shortness of breath complaint to suggest PE. Will obtain chest x-ray and COVID test TRAVEL OUTSIDE OF THE [place]. IN LAST 30 DAYS: No - Related Data Allergies/Adverse Reactions: No Known Allergies Allergy (Verified 03/03/20 22:19) Past Medical History - Social History Smoking Status: Never Smoker Chew tobacco use (# tins/day): No Frequency of alcohol use: Social Drug Abuse: None Family History: Reviewed & Not Pertinent Pulmonary Medical History: Reports: Hx Pneumonia - january Past Surgical History: Reports: Hx Bowel Surgery, Hx Cardiac Surgery - Cardiac valve repair Physical Exam - Vital signs Vitals: Temp Pulse Resp BP Pulse Ox 98.8 F 67 18 117/75 100 03/03/20 21:46 03/03/20 21:46 03/03/20 21:46 03/03/20 21:46 03/03/20 21:46 Course - Re-evaluation Re-evalutation: 03/03/20 23:22 Chest x-ray shows dextrocardia which is consistent with the patient's history. No sign of infiltrate to suggest pneumonia - Vital Signs Vital signs: Temp Pulse Resp BP Pulse Ox 98.8 F 67 18 117/75 100 03/03/20 21:46 03/03/20 21:46 03/03/20 21:46 03/03/20 21:46 03/03/20 21:46 Discharge - Discharge Clinical Impression: Person under investigation for COVID-19, Cough Condition: Stable Disposition: HOME, SELF-CARE Additional Instructions: You are considered a person under investigation for COVID-19 at this time. Self quarantine at home for the next 2 to 5 days until you have a test result. Test results usually take 2 to 5 days and you should receive a call from the hospital with your test results. Follow-up with your primary care provider for reevaluation of your symptoms. Call for appointment. Return for worsening condition Referrals: SARAH LIU MD [ACTIVE STAFF] - Follow up as needed
--- NOTE | 2020-03-03 23:31 | RADIOLOGY REPORT (SQ) ---
CLINICAL HISTORY: cough COMPARISON: 12/31/2019. TECHNIQUE: XR CHEST 1 VIEW 03/03/2020 12:00 AM CDT FINDINGS: The heart is normal in size. Replacement and sternotomy was performed. There are are epicardial pacemaker leads present. There is dextrocardia. Lungs are clear without consolidation, atelectasis, mass or edema. There is no pleural effusion. There is no pneumothorax. There are no acute osseous findings. IMPRESSION: No definite pneumonia.
[2020-03-03 23:50] VITALS: BP 119/70
== END 2020-03-04 00:25 | disposition home or self-care (01) ==
LOC: ER 21:34
DX: U07.1 COVID-19 (principal); R05 Cough; M79.10 Myalgia, unspecified site; R51 Headache; R09.89 Other specified symptoms and signs involving the circulatory and respiratory systems
CPT/HCPCS: 99283; 87635; 71045; C9803

== ENCOUNTER 2020-04-12 19:23 | Emergency (ER) | payer OTHER ==
[2020-04-12] MEDS ORDERED: ASPIRIN 325 MG TABLET PO ONE (19:52)
--- NOTE | 2020-04-12 19:55 | ER Document Report ---
ED Medical Screen (RME) - General Chief Complaint: Chest Tightness Stated Complaint: CHEST DISCOMFORT,DIFFICULTY BREATHING,BUBBLY STOMA Time Seen by Provider: 04/12/20 19:43 TRAVEL OUTSIDE OF THE [place] IN LAST 30 DAYS: No - HPI Notes: 04/12/20 19:54 24-year-old male with past medical history of atrial fibrillation, pulmonary embolus, pneumonia, pacemaker to the emergency department with complaints of ch est pain x2 days with shortness of breath. States the chest pain is worse with a deep breath. Does admit that he is increased his exercise regimen lately but does not recall a specific moment when he injured himself. He denies any diaphoresis, nausea, vomiting. He did test positive for COVID- and March 03. He denies any fever, chills, cough. He was diagnosed with a PE over 1 year ago and was on blood thinners but is not currently on blood thinners now. Denies any leg swelling or leg pain. I performed a brief medical screening exam on the patient determined that the patient needs further evaluation and management by main side provider. I have placed initial orders to help expedite care. - Related Data Allergies/Adverse Reactions: No Known Allergies Allergy (Verified 03/03/20 22:19) Past Medical History - Social History Chew tobacco use (# tins/day): No Frequency of alcohol use: None Drug Abuse: Marijuana Pulmonary Medical History: Reports: Hx Pneumonia - january Past Surgical History: Reports: Hx Bowel Surgery, Hx Cardiac Surgery - Cardiac valve repair Physical Exam - Vital signs Vitals: Temp Pulse Resp BP Pulse Ox 98.2 F 69 18 105/64 96 04/12/20 19:39 04/12/20 19:39 04/12/20 19:39 04/12/20 19:39 04/12/20 19:39 Course - Vital Signs Vital signs: Temp Pulse Resp BP Pulse Ox 98.2 F 69 18 105/64 96 04/12/20 19:39 04/12/20 19:39 04/12/20 19:39 04/12/20 19:39 04/12/20 19:39
--- NOTE | 2020-04-12 20:16 | EKG REPORT ---
SEVERITY:- ABNORMAL ECG - ATRIAL-PACED RHYTHM BORDERLINE RIGHT AXIS DEVIATION NONSPECIFIC T ABNORMALITIES, ANT-LAT LEADS : Confirmed by: Marilyn Esposito MD 12-Apr-2020 20:15:35
[2020-04-12 20:20] LABS: ABSOLUTE BASOPHILS # (AUTO) 0.1 10^3/uL (0.0-0.2); ABSOLUTE EOSINOPHILS # (AUTO) 0.1 10^3/uL (0.0-0.6); ABSOLUTE LYMPHOCYTES (AUTO) 1.5 10^3/uL (0.5-4.7); ABSOLUTE NEUT (AUTO) 6.4 10^3/uL (1.7-8.2); BASOPHILS % (AUTO) 0.9 % (0-2); EOSINOPHILS % (AUTO) 1.4 % (0-6); HEMATOCRIT 39.3 % (37.9-51.0); HEMOGLOBIN 13.1 g/dL (13.5-17.0); MEAN CORPUSCULAR HEMOGLOBIN 27.3 pg (27.0-33.4); MEAN CORPUSCULAR HGB CONC 33.2 g/dL (32.0-36.0); MEAN CORPUSCULAR VOLUME 82 fl (80-97); MONOCYTES % (AUTO) 11.1 % (3-13); PLATELET COUNT 212 10^3/uL (150-450); RED BLOOD COUNT 4.79 10^6/uL (4.35-5.55); SEGMENTED NEUTROPHILS % (AUTO) 70.6 % (42-78); TOTAL CELLS COUNTED % (AUTO) 100 %; WHITE BLOOD COUNT 9.1 10^3/uL (4.0-10.5)
--- NOTE | 2020-04-12 20:26 | ER Document Report ---
ED Cardiac - General Chief Complaint: Chest Tightness Stated Complaint: CHEST DISCOMFORT,DIFFICULTY BREATHING,BUBBLY STOMA Time Seen by Provider: 04/12/20 19:43 Mode of Arrival: Ambulatory Information source: Patient Notes: ED Medical Screen ([facility] notes) - General Chief Complaint: Chest Tightness Stated Complaint: CHEST DISCOMFORT,DIFFICULTY BREATHING,BUBBLY STOMA Time Seen by Provider: 04/12/20 19:43 TRAVEL OUTSIDE OF THE [place] IN LAST 30 DAYS: No - HPI Notes: 04/12/20 19:54 24-year-old male with past medical history of atrial fibrillation, pulmonary embolus, pneumonia, pacemaker to the emergency department with complaints of chest pain x2 days with shortness of breath. States the chest pain is worse with a deep breath. Does admit that he is increased his exercise regimen lately but does not recall a specific moment when he injured himself. He denies any diaphoresis, nausea, vomiting. He did test positive for COVID-19 and March 03. He denies any fever, chills, cough. He was diagnosed with a PE over 1 year ago and was on blood thinners but is not currently on blood thinners now. Denies a ny leg swelling or leg pain. I performed a brief medical screening exam on the patient determined that the patient needs further evaluation and management by main side provider. I have placed initial orders to help expedite care. MY NOTES 24-year-old male arrives with chief complaint of having chest pain for 2 days associated with shortness of breath. Pain is increased with deep inspiration. He recently began a new push-up exercise regime. He also tested positive for COVID-19 the last month. He has a prior history of having pulmonary emboli 1 year ago but denies any hemoptysis or leg or arm swelling. He also has a prior medical history of atrial fibrillation and pneumonia and pacemaker. Patient advises he does not drink or smoke or use marijuana but has a history of blood clots and CABG. He denies any allergies. Patient denies any constipation but is bilirubin is 2.7. He admits to having tricuspid valve surgery last year with pacemaker placement. Patient does advise he has bad dental problems but denies any sore throat but his posterior pharyngeal mucosa reveals tonsils that are around 2 and half centimeters diameter each with erythema TRAVEL OUTSIDE OF THE [place] IN LAST 30 DAYS: No - HPI Patient complains to provider of: Chest pain Use of: denies: Alcohol, Amphetamines, Bath salts, Caffeine, Cocaine, Decongestants Is the pain a: New problem Quality of pain: Intermittent Chest pain radiation location: None Severity now: Mild Severity at worst: Mild Pain level currently: 1 Chest pain precipitating factors: Physical Exertion Positive cardiac history: Yes Associated symptoms: None Exacerbated by: Deep breaths Relieved by: Nothing Similar symptoms previously: No Recently seen / treated by doctor: No - Related Data Allergies/Adverse Reactions: No Known Allergies Allergy (Verified 03/03/20 22:19) Past Medical History - General Information source: Patient - Social History Smoking Status: Never Smoker Cigarette use (# per day): No Chew tobacco use (# tins/day): No Smoking Education Provided: No Frequency of alcohol use: None Drug Abuse: Marijuana Lives with: Family Family History: Reviewed & Not Pertinent Patient has suicidal ideation: No Patient has homicidal ideation: No Pulmonary Medical History: Reports: Hx Pneumonia - january Past Surgical History: Reports: Hx Bowel Surgery, Hx Cardiac Surgery - Cardiac valve repair Review of Systems - Review of Systems Constitutional: No symptoms reported EENT: No symptoms reported Cardiovascular: See HPI, Chest pain Respiratory: No symptoms reported Gastrointestinal: No symptoms reported Genitourinary: No symptoms reported Male Genitourinary: No symptoms reported Musculoskeletal: No symptoms reported Skin: No symptoms reported Hematologic/Lymphatic: No symptoms reported Neurological/Psychological: No symptoms reported Physical Exam - Vital signs Vitals: Temp Pulse Resp BP Pulse Ox 98.2 F 69 18 105/64 96 04/12/20 19:39 04/12/20 19:39 04/12/20 19:39 04/12/20 19:39 04/12/20 19:39 Interpretation: Normal - General General appearance: Appears well, Alert - HEENT Head: Normocephalic, Atraumatic Eyes: Normal Pupils: PERRL Nasal: Normal Mouth/Lips: Normal Mucous membranes: Normal Teeth diagram: 1 - dental abscesses 2 - dental abscesses - Respiratory Respiratory status: No respiratory distress, Other - s/p valve repair scar midchest Chest status: Nontender Breath sounds: Normal Chest palpation: Normal - Cardiovascular Rhythm: Regular Heart sounds: Normal auscultation Murmur: No - Abdominal Inspection: Normal Distension: No distension Bowel sounds: Normal Tenderness: Nontender Organomegaly: No organomegaly - Rectal Prostate: Other - deferred - Genitourinary Scrotum: Other - deferred - Back Back: Normal, Nontender - Extremities General upper extremity: Normal inspection, Nontender, Normal color, Normal ROM, Normal temperature General lower extremity: Normal inspection, Nontender, Normal color, Normal ROM, Normal temperature, Normal weight bearing. No: Isabel's sign - Neurological Neuro grossly intact: Yes Cognition: Normal Orientation: AAOx4 [place] Coma Scale Eye Opening: Spontaneous Poli Coma Scale Verbal: Oriented Poli Coma Scale Motor: Obeys Commands [place] Coma Scale Total: 15 Speech: Normal Motor strength normal: LUE, RUE, LLE, RLE Sensory: Normal - Psychological Associated symptoms: Normal affect - Skin Skin Temperature: Warm Skin Moisture: Dry Skin Color: Normal Course - Vital Signs Vital signs: Temp Pulse Resp BP Pulse Ox 98.2 F 69 18 105/64 96 04/12/20 19:39 04/12/20 19:39 04/12/20 19:39 04/12/20 19:39 04/12/20 19:39 - Laboratory Result Diagrams: 04/12/20 20:03 04/12/20 20:03 Laboratory results interpreted by me: 04/12/20 04/12/20 20:03 20:03 Hgb 13.1 L RDW 15.0 H Total Bilirubin 2.7 H - Diagnostic Test Radiology reviewed: Reports reviewed - EKG Interpretation by Tn EKG shows normal: Sinus rhythm Rate: Normal Rhythm: NSR - With 69 bpm atrial paced rhythm with borderline right axis deviation and nonspecific T wave abnormalities anterior lateral leads and I agree with the computer evaluation of this EKG plus I read this EKG myself. Discharge - Discharge Clinical Impression: Chest pain at rest, Dental caries, Valvular heart disease, Tonsillitis Condition: Good Disposition: HOME, SELF-CARE Additional Instructions: Follow-up with tight barrel inspector and personal doctor this week take antibiotics as directed also follow-up with dentist this week. He will need the molars that are abscessed to be taking care of because of your heart valve disease. There is an association between dental abscesses and heart valve disease. Prescriptions: Cephalexin Monohydrate [Keflex 500 mg Capsule] 500 mg PO BID 5 Days #20 capsule
[2020-04-12 20:29] LABS: INTERNATIONAL RATION (INR) 1.09; PROTHROMBIN TIME 14.3 SEC (11.4-15.4)
[2020-04-12 20:30] LABS: PARTIAL THROMBOPLASTIN TIME 33.4 SEC (23.5-35.8)
[2020-04-12 20:42] LABS: ALBUMIN 4.1 g/dL (3.5-5.0); ALKALINE PHOSPHATASE 58 U/L (38-126); ANION GAP 7 (5-19); ASPARTATE AMINO TRANSFERASE 38 U/L (17-59); BILIRUBIN,DIRECT 0.4 mg/dL (0.0-0.4); BILIRUBIN,TOTAL 2.7 mg/dL (0.2-1.3); BLOOD UREA NITROGEN 12 mg/dL (7-20); CALCIUM 9.2 mg/dL (8.4-10.2); CARBON DIOXIDE 29 mmol/L (22-30); CHLORIDE 104 mmol/L (98-107); GLUCOSE 87 mg/dL (75-110); POTASSIUM 4.3 mmol/L (3.6-5.0); TOTAL PROTEIN 7.4 g/dL (6.3-8.2)
--- NOTE | 2020-04-12 21:13 | RADIOLOGY REPORT (SQ) ---
EXAM DESCRIPTION: XR CHEST 1 VIEW COMPLETED DATE/TME: 04/12/2020 19:52 CLINICAL HISTORY: 24 years, Male, chest pain, SOB COMPARISON: Prior chest radiograph from 03/03/2020 NUMBER OF VIEWS: One TECHNIQUE: Single frontal view of the chest was obtained LIMITATIONS: None. FINDINGS: Status post median sternotomy and valve replacement. 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 Lungs are clear. No pleural effusion or pneumothorax. Pacer leads project over the cardiac silhouette. IMPRESSION: No acute disease. copyright 2010 [employer]- All Rights Reserved
[2020-04-12] MEDS ORDERED: CEPHALEXIN 500 MG CAPSULE PO ONE (21:48)
--- NOTE | 2020-04-12 22:05 | RADIOLOGY REPORT (SQ) ---
CLINICAL INDICATION: inc bili. TECHNIQUE: 2 image(s) of the abdomen. COMPARISON: None. FINDINGS: A nonspecific gas pattern is identified. No evidence of high grade obstruction. No evidence of free air. Visualized bones are unremarkable. Mild hard stool within the colon IMPRESSION: No acute intra-abdominal process is identified.
[2020-04-12 23:55] VITALS: BP 121/79
== END 2020-04-12 23:57 | disposition home or self-care (01) ==
LOC: ER 19:23
DX: I38 Endocarditis, valve unspecified (principal); J03.90 Acute tonsillitis, unspecified; K02.9 Dental caries, unspecified; R07.9 Chest pain, unspecified; R06.02 Shortness of breath; I48.91 Unspecified atrial fibrillation; Z86.711 Personal history of pulmonary embolism; Z95.0 Presence of cardiac pacemaker
CPT/HCPCS: 36415; 71045; 74018; 80053; 82550; 82553; 83735; 84484; 85025; 85610; 85730; 86308; 87070; 87880; 93005; 93010; 99285